=== PATIENT | male | born 1985 | race Caucasian/White ===

== ENCOUNTER 2017-12-03 15:17 | Emergency (ER) | payer BC, SELFPAY ==
[2017-12-03] MEDS ORDERED: Lidocaine 1% w/Epinephrine 1:100K 20 ML VIAL ONE (16:22)
--- NOTE | 2017-12-03 16:31 | RAD ---
LEFT WRIST 3 VIEWS: Date: 12/03/17 HISTORY: Left wrist laceration. FINDINGS: Carpals appear normally aligned. No evidence of fracture or other osseous abnormality. IMPRESSION: No evidence of osseous abnormality. POS: [facility]
[2017-12-03] MEDS ORDERED: Adacel (T-DAP) 0.5 ML VIAL ONE (17:20)
[2017-12-03] MEDS ORDERED: Bacitracin Zinc 1 Packet ONE (17:22)
== END 2017-12-03 17:48 | disposition home or self-care (01) ==
LOC: ERS 15:17
DX: S61.512A Laceration without foreign body of left wrist, initial encounter (principal); W22.8XXA Striking against or struck by other objects, initial encounter
CPT/HCPCS: 12002; 90471; 90715; J2001